=== PATIENT | female | born 1965 | race American Indian/Alaskan Native ===

== ENCOUNTER 2020-03-30 09:09 | Outpatient (CLI) | payer BC, OTHER ==
[2020-03-30 09:45] LABS: Hematocrit 34.6 % (30.3-42.9); Mean Corpuscular HGB Conc 35 % (30-34); Mean Corpuscular Volume 84 fl (79-97); Platelet Count 235 K/mm3 (140-440); Red Cell Distribution Width 15.9 % (13.2-15.2)
[2020-03-30 10:13] LABS: Alanine Aminotransferase 43 units/L (7-56); Albumin 4.3 g/dL (3.9-5); BUN/Creatinine Ratio 12; Blood Urea Nitrogen 11 mg/dL (7-17); Calcium 9.6 mg/dL (8.4-10.2); Hemolysis Index 3
[2020-03-30 10:55] LABS: Erythrocyte Sedimentation Rate 25 mm/Hr (0-20)
[2020-04-02 12:29] LABS: Vitamin D, 25-OH, D2 20 ng/mL
[2020-04-04 12:27] LABS: ANA Screen, IFA Positive (Negative)
== END 2020-03-30 09:10 | disposition home or self-care (01) ==
LOC: LAB 09:09
PROVIDERS: ATTEND Specialist
DX: G65.1 Sequelae of other inflammatory polyneuropathy (principal); G62.9 Polyneuropathy, unspecified
CPT/HCPCS: 36415; 80053; 82306; 82607; 83036; 83921; 84443; 85027; 85652; 86038; 86225; 86334; 86592